=== PATIENT | female | born 1980 | race Two or more races ===

== ENCOUNTER 2016-06-15 12:43 | Emergency (ER) | payer SELFPAY ==
--- NOTE | ~2016-06-15 | CR21 ---
[facility]. [facility] A Service of [facility] & [facility] RADIOLOGY TEXT RESULTS PATIENT: RASHAUN BARBER LOCATION: SED : 80 UNIT #: [id number] AGE: [address]: Jessy Steve APRN SEX: F ORDER DR: [id number] [place] [id number] E MR#: [id number] Acc #: [id number] NAME: RASHAUN BARBER : 1980 SEX: F STUDY DATE/TIME: 06/15/2016 12:35 UNIT: SED ROOM: STUDY DESCRIPTION: CR Ankle Min 3 Views Rt Attending Physician: Jessy Steve A.P.R.N. Ordering Physician: Jessy Steve A.P.R.N. Primary Care Physician: Primary Care Physician No MEDICAL IMAGING REPORT This report is preliminary unless electronic signature is present. EXAM Right ankle series 06/15/2016. HISTORY 36-year-old female in the ED complaining of right lateral ankle pain and swelling after a fall while roller skating last night. TECHNIQUE Three-view right ankle series. FINDINGS Examination shows a nondisplaced oblique fracture across the distal metaphysis of the fibula. No distal tibia fracture or hindfoot fracture. Lateral soft tissue swelling. IMPRESSION 1. Nondisplaced oblique fracture across the distal [facility]. 2. Lateral soft tissue swelling. 1. Dictated by... Yosef Pop M.D. THIS IS AN ELECTRONICALLY VERIFIED REPORT Yosef Pop M.D. at 06/16/2016 5:55 AM Cynthia TD: 06/15/2016 15:25 JOB #: [id number] MEDICAL IMAGING REPORT
== END 2016-06-15 13:30 | disposition home or self-care (01) ==
LOC: SED 12:43
DX: S82.831A Other fracture of upper and lower end of right fibula, initial encounter for closed fracture (principal); W19.XXXA Unspecified fall, initial encounter
CPT/HCPCS: 29515; 73610; 99283